=== PATIENT | male | born 1980 | race Caucasian/White ===

== ENCOUNTER 2017-05-27 20:04 | Emergency (ER) | payer SELFPAY ==
--- NOTE | 2017-05-27 20:47 | EDM.PDOC ---
ED HPI GENERAL MEDICAL PROBLEM - General Chief Complaint: Eye Problems Stated Complaint: CHEMICAL DROP IN RIGHT EYE Time Seen by Provider: 05/27/17 20:44 Source of Information: Reports: Patient History Limitations: Reports: No Limitations - History of Present Illness INITIAL COMMENTS - FREE TEXT/NARRATIVE: History of present illness: [37 yr old male presenting status post droplet contamination of right eye from HCl solution at work. MSDS indicates 28% HCl, patient indicates that they had irrigated for approximately 20 minutes with clear water on site.] Review of systems: As per history of present illness and below otherwise all systems reviewed and negative. Past medical history: As per history of present illness and as reviewed below otherwise noncontributory. Surgical history: As per history of present illness and as reviewed below otherwise noncontributory. Social history: No reported history of drug or alcohol abuse. Family history: As per history of present illness and as reviewed below otherwise noncontributory. Physical exam: HEENT: Atraumatic, normocephalic, pupils reactive, right conjunctiva erythematous, no scleral icterus, mucous membranes moist, throat clear, neck supple, nontender, trachea midline. Lungs: Clear to auscultation, breath sounds equal bilaterally, chest nontender. Heart: S1S2, regular, negative for clicks, rubs, or JVD. Abdomen: Soft, nondistended, nontender. Negative for masses or hepatosplenomegaly. Negative for costovertebral tenderness. Pelvis: Stable nontender. Genitourinary: Deferred. Rectal: Deferred. Extremities: Atraumatic, negative for cords or calf pain. Neurovascular unremarkable. Neuro: Awake, alert, oriented. Cranial nerves II through XII unremarkable. Cerebellum unremarkable. Motor and sensory unremarkable throughout. Exam nonfocal. Patient indicates the sensation as he scratched his eye. Status post irrigation with approximately 18 bottles of water. Poison control notified and they indicated if the burning sensation had ceased the patient had done sufficient drop of irrigation and that no further and patient for a patient this time. PH is 7.0 Visual acuity is 20/25 in the right with 20/20 in the left Spoke with ophthalmology indicated that Erythromycin ointment from the [facility] and an eye patch would be sufficient treatment at this time with plan to follow-up in the am with them. Diagnostics: [] Therapeutics: [] Impression: [Chemical eye exposure] Plan: [Erythromycin eye ointment /eye patch- f/u with Opthamology tomorrow] Definitive disposition and diagnosis as appropriate pending reevaluation and review of above. - Related Data Allergies Allergy/AdvReac Type Severity Reaction Status Date / Time No Known Allergies Allergy Verified 05/27/17 20:42 Home Meds: Home Meds . [No Known Home Meds] 05/27/17 [History] ED ROS GENERAL - Review of Systems Review Of Systems: See Below (See history of present illness) ED EXAM GENERAL W FULL EYE - Physical Exam Exam: See Below (History of present illness) Course - Vital Signs Last Recorded V/S: Last Vital Signs Temp 36.3 C 05/27/17 20:42 Pulse 62 05/27/17 20:42 Resp 16 05/27/17 20:42 BP 141/70 H 05/27/17 20:42 Pulse Ox 96 05/27/17 20:42 Departure - Departure Time of Disposition: 21:02 Disposition: Home, Self-Care 01 Condition: Good Clinical Impression: Chemical burn due to acid, conjunctiva, right - Discharge Information Referrals: PCP,None [Primary Care Provider] - Forms: ED Department Discharge Additional Instructions: The following information is given to patients seen in the emergency department who are being discharged to home. This information is to outline your options for follow-up care. We provide all patients seen in our emergency department with a follow-up referral. The need for follow-up, as well as the timing and circumstances, are variable depending upon the specifics of your emergency department visit. If you don't have a primary care physician on staff, we will provide you with a referral. We always advise you to contact your personal physician following an emergency department visit to inform them of the circumstance of the visit and for follow-up with them and/or the need for any referrals to a consulting specialist. The emergency department will also refer you to a specialist when appropriate. This referral assures that you have the opportunity for follow-up care with a specialist. All of these measure are taken in an effort to provide you with optimal care, which includes your follow-up. Under all circumstances we always encourage you to contact your private physician who remains a resource for coordinating your care. When calling for follow-up care, please make the office aware that this follow-up is from your recent emergency room visit. If for any reason you are refused follow-up, please contact the [facility] Department at and asked to speak to the emergency department charge nurse. Wear eye ointment as directed Wear eye patch as discussed Follow-up with ophthalmology tomorrow as discussed
== END 2017-05-27 21:11 | disposition home or self-care (01) ==
LOC: MW.ED 20:04
DX: T54.2X1A Toxic effect of corrosive acids and acid-like substances, accidental (unintentional), initial encounter (principal); T26.61XA Corrosion of cornea and conjunctival sac, right eye, initial encounter; Y99.0 Civilian activity done for income or pay
CPT/HCPCS: 99283